=== PATIENT | female | born 1940 | race Two or more races ===

== ENCOUNTER 2019-05-25 14:51 | Outpatient (CLI) | payer MEDICARE, OTHER ==
--- NOTE | 2019-05-25 18:01 | Consultation ---
DATE OF CONSULTATION: 05/25/2019 CHIEF COMPLAINT: Abdominal pain. HISTORY OF PRESENT ILLNESS: This is a 79-year-old female who was referred to us for evaluation of screening colonoscopy and abdominal pain. Abdominal pain is mostly bilateral lower quadrants but the patient was given Bentyl by the primary care physician, Dr. Jules, which helped a little bit. Denies any nausea or vomiting. Denies any dysphagia. Denies any odynophagia. Denies any melena. Denies any weight loss. The patient apparently also had stool studies done, one out of three was positive for blood. Last endoscopy and colonoscopy many years ago. She does not exactly know how long ago. PAST MEDICAL HISTORY: 1. History of GERD. 2. Back pain. 3. Vitamin D deficiency. 4. Hypercholesterolemia. PAST SURGICAL HISTORY: Appendectomy, lysis of adhesions, back surgery. MEDICATIONS: Please see medication reconciliation list. FAMILY HISTORY: No family history of GI malignancies. SOCIAL HISTORY: The patient denies any tobacco, alcohol, or drug abuse. ALLERGIES: No known allergies. REVIEW OF SYSTEMS: A 10-point review of systems was performed and positive for abdominal pain, bilateral knee pain, back pain. PHYSICAL EXAMINATION: HEENT: Normocephalic and atraumatic. Sclerae anicteric. NECK: Supple. No evidence of obvious lymphadenopathy. CARDIOVASCULAR: Regular rhythm. Plus S1, S2. LUNGS: Clear to auscultation bilaterally. ABDOMEN: Positive bowel sounds. Soft and nontender. No rebound. No guarding. No peritoneal sign. EXTREMITIES: No cyanosis, no clubbing, no edema ASSESSMENT AND PLAN: The patient is a 79-year-old female with stool OB positive, lower quadrant abdominal pain. Last endoscopy and colonoscopy many years ago. The patient was given one tablet p.o. daily. The patient was scheduled for endoscopy and colonoscopy. The prep was explained to the patient. The risks and benefits of procedure were explained to the patient and scheduled for June 05, 2019. I want to thank, Dhara, for this kind referral. Tyree Vale M.D. DR: Avelino JOB#: [id number] CC: Dr. Jules
[2019-05-30] MEDS ORDERED: VITAMIN D22000 UNIT PO (14:04)
[2019-05-30] MEDS ORDERED: DICYCLOMINE HCL10 MG ORAL (14:04)
[2019-05-30] MEDS ORDERED: GLUCOSAMINE1000 M1 PO (14:04)
[2019-05-30] MEDS ORDERED: METOPROLOL SUCC25 MG ORAL (14:04)
[2019-05-30] MEDS ORDERED: CRESTOR10 M2 ORAL (14:04)
[2019-05-30] MEDS ORDERED: MELOXICAM15 MG PO (14:04)
[2019-05-30] MEDS ORDERED: GABAPENTIN600 MG ORAL (14:04)
[2019-05-30] MEDS ORDERED: LEXAPRO20 MG ORAL (14:04)
[2019-05-30] MEDS ORDERED: ASPIRIN EC325 MG ORAL (14:04)
== END 2019-05-25 16:51 | disposition home or self-care (01) ==
LOC: PAN 14:51
DX: R10.9 Unspecified abdominal pain (principal); K21.9 Gastro-esophageal reflux disease without esophagitis; E78.00 Pure hypercholesterolemia, unspecified; Z90.89 Acquired absence of other organs
CPT/HCPCS: G0463

== ENCOUNTER 2019-06-05 08:16 | Day surgery (SDC) | payer MEDICARE, OTHER ==
[~2019-06-05] VITALS: Ht 157.5 cm; Wt 66.7 kg
[~2019-06-05 08:16] MED LIST: ASPIRIN EC325 MG ORAL; CRESTOR10 M2 ORAL; DICYCLOMINE HCL10 MG ORAL; GABAPENTIN600 MG ORAL; GLUCOSAMINE1000 M1 PO; LEXAPRO20 MG ORAL; MELOXICAM15 MG PO; METOPROLOL SUCC25 MG ORAL; VITAMIN D22000 UNIT PO
--- NOTE | 2019-06-05 09:52 | Pre-Procedure Note/Attestation ---
Pre-Procedure Note/Attestation Complete Prior to Procedure Planned Procedure: not applicable Procedure Narrative: esophagogastroduodenoscopy and colonoscopy Indications for Procedure Pre-Operative Diagnosis: screening colon, GERD Attestation I attest that I discussed the nature of the procedure; its benefits; risks and complications; and alternatives (and the risks and benefits of such alternatives ), prior to the procedure, with the patient (or the patient's legal customer retention representative). I attest that, if there was a reasonable possibility of needing a blood transfusion, the patient (or the patient's legal customer retention representative) was given the [facility] standardized written summary, pursuant to the [place] Blood Safety Act ([place] Health and Safety Code # 1645, as amended). I attest that I re-evaluated the patient just prior to the surgery and that there has been no change in the patient's H&P, except as documented below: Tyree Vale MD Jun 05, 2019 09:52
--- NOTE | 2019-06-05 09:52 | Short Stay Surgery H&P ---
History of Present Illness History of Present Illness Chief Complaint see recent office note HPI Nithya Szymanski is a 79 year old female who was admitted on for Gerd And Screening Patient History Allergies: Coded Allergies: No Known Allergies (Unverified , 05/30/19) Medication History Scheduled Aspirin* (Aspirin Ec*), 325 MG ORAL DAILY, (Reported) Dicyclomine Hcl* (Dicyclomine Hcl*), 10 MG ORAL BID, (Reported) Ergocalciferol (Vitamin D2) (Vitamin D2), 2,000 UNIT PO DAILY, (Reported) Escitalopram Oxalate* (Lexapro*), 20 MG ORAL DAILY, (Reported) Gabapentin* (Gabapentin*), 600 MG ORAL HS, (Reported) Glucosamine Sulfate 2KCL (Glucosamine), 1,000 MG PO DAILY, (Reported) Meloxicam* (Meloxicam*), 15 MG PO DAILY, (Reported) Metoprolol Succinate* (Metoprolol Succinate*), 12.5 MG ORAL DAILY, (Reported) Rosuvastatin Calcium* (Crestor*), 5 MG ORAL DAILY, (Reported) Physical Exam Vital Signs Last Vital Signs Date Time Temp Pulse Resp B/P (MAP) Pulse Ox O2 Delivery O2 Flow Rate FiO2 06/05/19 09:23 Room Air Plan Attestation Are the patient's medical conditions optimized for surgery? Tyree Vale MD Jun 05, 2019 09:52
[2019-06-05] MEDS ORDERED: LR 1000ml 1,000 ML IVLG SCH (09:55)
--- NOTE | 2019-06-05 09:55 | Anethesia Preoperative Eval ---
Anesthesia Pre-op PMH/ROS General Date of Evaluation: Jun 05, 2019 Anesthesiologist: Ron ASA Score: ASA 2 Mallampati Score Class I : Soft palate, uvula, fauces, pillars visible Class II: Soft palate, uvula, fauces visible Class III: Soft palate, base of uvula visible Class IV: Only hard plate visible Mallampati Classification: Class II Surgeon: Akanksha Diagnosis: GERD, screening Surgical Procedure: EGD and colonoscopy Anesthesia History: none Family History: no anesthesia problems Allergies: Coded Allergies: No Known Allergies (Unverified , 05/30/19) Medications: see eMAR Patient NPO?: Yes NPO Date: Jun 05, 2019 NPO Time: 00:00 Past Medical History Cardiovascular: Reports: HTN, other - HLD; Denies: CAD, ME, valve dz, arrhythmia Pulmonary: Denies: asthma, COPD, ELIAS, other Gastrointestinal/Genitourinary: Reports: GERD; Denies: CRI, ESRD, other Neurologic/Psychiatric: Reports: depression/anxiety; Denies: dementia, CVA, TIA, other Endocrine: Denies: DM, hypothyroidism, steroids, other HEENT: Denies: cataract (L), cataract (R), glaucoma, [place] (L), [place] (R), other Hematology/Immune: Denies: anemia, DVT, bleeding disorder, other Musculoskeletal/Integumentary: Reports: DJD; Denies: OA, RA, DDD, edema, other PSxH Narrative: appy. lumbar sx Anesthesia Pre-op Phys. Exam Physician Exam Last Vital Signs Date Time Temp Pulse Resp B/P (MAP) Pulse Ox O2 Delivery O2 Flow Rate FiO2 06/05/19 09:23 Room Air Constitutional: NAD Cardiovascular: RRR Respiratory: CTA Airway Exam Mallampati Score: Class II MO: full ROM: full Anesthesia Pre-op A/P Labs see chart Studies Pre-op Studies: EKG - sr Risk Assessment & Plan Assessment: ASA II Plan: MAC Status Change Before Surgery: No Pre-Antibiotics Drug: N/A Preethi Hogan MD Jun 05, 2019 09:55
[2019-06-05] MEDS ORDERED: DiphenhydrAMINE 50mg/ml Inj IVP PRN (10:00)
[2019-06-05] MEDS ORDERED: LR 1000ml ONE (10:00)
[2019-06-05] MEDS ORDERED: Propofol 200mg/20ml IV ONE (10:00)
[2019-06-05] MEDS ORDERED: Lidocaine 1% MPF 10mg/ml 5ml ONE (10:00)
[2019-06-05 10:46] VITALS: BP 121/62
--- NOTE | 2019-06-05 10:48 | Immediate Post-Op Evaluation ---
Immediate Post-Op Evalulation Immediate Post-Op Evalulation Procedure: EGd and colonoscopy Date of Evaluation: Jun 05, 2019 Time of Evaluation: 10:51 IV Fluids: 500 Blood Products: 0 Estimated Blood Loss: 0 Urinary Output: 0 Blood Pressure Systolic: 121 Blood Pressure Diastolic: 62 Pulse Rate: 62 Respiratory Rate: 16 O2 Sat by Pulse Oximetry: 99 Temperature (Fahrenheit): 97.3 Pain Score (1-10): 0 Nausea: No Vomiting: No Complications 0 Patient Status: awake, reacts, patent, none Hydration Status: adequate Drug: N/A Preethi Hogan MD Jun 05, 2019 10:48
--- NOTE | 2019-06-05 10:49 | 48 Hour Post Anesthesia Eval ---
Post Anesthesia Evaluation Procedure: EGd and colonoscopy Date of Evaluation: Jun 05, 2019 Airway: patent Nausea: No Vomiting: No Pain Intensity: 0 Hydration Status: adequate Cardiopulmonary Status: at baseline Mental Status/LOC: patient returned to baseline Post-Anesthesia Complications: 0 Follow-up care needed: ready to discharge Preethi Hogan MD Jun 05, 2019 10:49
[2019-06-05 10:51] VITALS: BP 144/66
--- NOTE | 2019-06-05 10:55 | Endoscopy Procedure Note ---
Endoscopy Procedure Note General Indication for Procedure: screening colon,GERD Procedures Performed: EGD, colonoscopy Operative Findings/Diagnosis: gastritis, diverticulosis Specimen: yes Pt Tolerated Procedure Well: Yes Estimated Blood Loss: none Anesthesia Anesthesiologist: marybeth Anesthesia: MAC Inserted Devices Implant(s) used?: No Quality Quality of Bowel Preparation: Good Did scope reach the cecum?: Yes Was there any complications?: No GI Core Measures 50 yrs or older w/o bx or poly: No 10yrs. F/U recommended: Yes If not recommended, why?: Above average risk 18 years or older w/prev. colo: No Tyree Vale MD Jun 05, 2019 10:55
[2019-06-05 10:56] VITALS: BP 144/66
[2019-06-05 11:09] VITALS: BP 151/72
[2019-06-05 11:20] VITALS: BP 149/77
[2019-06-05 11:35] VITALS: BP 153/77
--- NOTE | 2019-06-05 15:30 | Procedure Note ---
DATE OF PROCEDURE: 06/05/2019 SURGEON: Tyree Vale M.D. PROCEDURE: Upper endoscopy with biopsy and colonoscopy with biopsy. ANESTHESIA: Per Dr. Velasquez. INSTRUMENT: Olympus adult flexible upper endoscope and colonoscope. INDICATIONS: Screening colonoscopy evaluation, abdominal pain, chronic GERD. REASON FOR PROCEDURE: The procedure, risks, benefits, and possible consequences, including hemorrhage, aspiration, perforation and infection, and alternative treatments, were explained to the patient/legal guardian by Dr. Tyree Vale and the patient/legal guardian understood and accepted these risks. DESCRIPTION OF PROCEDURE: After informed consent was obtained and the patient was adequately sedated, Olympus upper endoscope was advanced from mouth into the second portion of the duodenum and retroflexion was performed in the stomach. The patient has evidence of diffuse gastritis. Random biopsy from antrum and body was obtained to rule out H. pylori infection. Also, the patient has irregular Z-line. Few small inlet patches seen in the upper esophagus. At this time, the upper endoscope was retrieved. The patient was turned over for colonoscopy. First, rectal exam was performed, which was normal. colonoscope first was advanced from the rectum into the sigmoid given the significant diverticulosis. We could not pass the scope. We switched back to the upper scope. We were able to pass the scope all the way almost to the cecum. It seems to be a large lipoma in the cecum area, causing difficulty to get to the cecum. Biopsy from this presumptive lipoma was obtained. There was another small polyp in the transverse colon, removed with cold biopsy forceps technique. The patient had evidence of significant diverticulosis especially in the left colon. At this time, the scope was removed. Retroflexion was performed in the rectum, showed evidence of medium-sized internal hemorrhoids. Then, we introduced the adult scope and at this time, we were able to pass all the way into the cecum. SUMMARY OF FINDINGS: 1. Gastritis. 2. Irregular Z-line. 3. Inlet patch. 4. Significant diverticulosis. 5. Large lipoma seems to be in the cecum, status post biopsy. 6. One polyp removed, see above for details. 7. Diverticulosis. RECOMMENDATIONS: 1. Follow up biopsy results and treat accordingly. 2. We will recommend repeat colonoscopy in 5 years. Tyree Rosalia Vale DR: TRAY JOB#: [id number] CC:
== END 2019-06-05 11:50 | disposition home or self-care (01) ==
LOC: GAS 08:16
DX: Z12.11 Encounter for screening for malignant neoplasm of colon (principal); R10.9 Unspecified abdominal pain; K21.9 Gastro-esophageal reflux disease without esophagitis; K57.90 Diverticulosis of intestine, part unspecified, without perforation or abscess without bleeding; K63.5 Polyp of colon; D17.79 Benign lipomatous neoplasm of other sites; K29.70 Gastritis, unspecified, without bleeding; Z79.82 Long term (current) use of aspirin; Z79.899 Other long term (current) drug therapy; I10 Essential (primary) hypertension; E78.5 Hyperlipidemia, unspecified; F32.9 Major depressive disorder, single episode, unspecified; F41.9 Anxiety disorder, unspecified; Z90.89 Acquired absence of other organs
CPT/HCPCS: 43239; 45380; 93005; J2704; J7120; 94003; 94150

== ENCOUNTER 2019-06-19 13:30 | Outpatient (CLI) | payer MEDICARE, OTHER ==
[2019-06-19 13:41] VITALS: BP 128/62
--- NOTE | 2019-06-19 14:27 | General Progress Note ---
Assessment/Plan Assessment/Plan: SUMMARY OF FINDINGS: 1. Gastritis. 2. Irregular Z-line. 3. Inlet patch. 4. Significant diverticulosis. 5. Large lipoma seems to be in the cecum, status post biopsy. 6. One polyp removed, see above for details. 7. Diverticulosis. RECOMMENDATIONS: 1. Follow up biopsy results and treat accordingly. 2. We will recommend repeat colonoscopy in 5 years. Subjective ROS Limited/Unobtainable: Yes Allergies: Coded Allergies: No Known Allergies (Unverified , 05/30/19) Objective Last 24 Hour Vital Signs Date Time Temp Pulse Resp B/P (MAP) Pulse Ox O2 Delivery O2 Flow Rate FiO2 06/19/19 13:41 98.2 71 16 128/62 (84) 96 General Appearance: alert EENT: normal ENT inspection Neck: supple Cardiovascular: normal rate Respiratory/Chest: decreased breath sounds Abdomen: normal bowel sounds, non tender, soft Extremities: non-tender Tyree Vale MD Jun 19, 2019 14:27
== END 2019-06-19 15:30 | disposition home or self-care (01) ==
LOC: PAN 13:30
DX: K29.70 Gastritis, unspecified, without bleeding (principal); K57.90 Diverticulosis of intestine, part unspecified, without perforation or abscess without bleeding; D17.79 Benign lipomatous neoplasm of other sites; K63.5 Polyp of colon
CPT/HCPCS: 99212